=== PATIENT | male | born 1950 | race Caucasian/White ===

== ENCOUNTER 2016-11-08 06:03 | Observation (INO) | payer BC ==
[~2016-11-08] VITALS: Ht 180.3 cm; Wt 110.2 kg
--- NOTE | ~2016-11-08 | TEE ---
Transesophageal Echocardiogram [facility] [id number] [place]. [address] NAME: KENNEY SCHNEIDER : 46 STATUS : ADM Sonia PAT#: [id number] AGE: 66 ADM/REG DATE : 11/08/16 MR#: [id number] REPORT SERV DATE: 11/09/16 DICTATED BY: SANTOS WILL DATE: 11/08/16 REPORT STATUS : Draft TRANSCRIBED BY: MODL DATE: 11/08/16 TRANSESOPHAGEAL ECHOCARDIOGRAM INDICATION: A 66-year-old man with mitral regurgitation. PROCEDURE: After questions were answered and consents were signed, the patient was sedated with propofol per Anesthesia. The probe was placed to mid esophagus and images were obtained without difficulty. At the conclusion of the procedure, the probe was withdrawn. The patient is recovering in the short-stay unit. 2-D INTERPRETATION: The left ventricular function is mildly decreased globally. There was no dilatation noted. RV was grossly normal in size and function. The mitral valve opened adequately. No prolapse was noted. There was no tethering of the mitral valve leaflets. The left atrium was enlarged. No thrombus was noted in the left atrium nor the left atrial appendage. The interatrial septum was intact. The right atrium was enlarged. The tricuspid valve opened adequately. The aortic valve was trileaflet and opened adequately. The pulmonic valve was not well visualized. There was no pericardial effusion. Mild atherosclerotic plaquing was noted in the descending aorta. COLOR FLOW: Moderate central mitral regurgitation was noted with moderate tricuspid regurgitation and trace aortic insufficiency. No color flow was noted across the interatrial septum. DOPPLER: The left upper and right upper pulmonary veins were both interrogated with pulse- wave Doppler. There was mild blunting but certainly, no reversal of the systolic inflow wave. CONCLUSION: 1. MILDLY DECREASED LEFT VENTRICULAR SYSTOLIC FUNCTION WITH ESTIMATED LVEF OF 45-50%. 2. 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 WO/MODL Santos Will M.D., Ph.D, F.A.C.C. / [id number] CC: Ervin Hallman M.D.
[~2016-11-08 06:03] MED LIST: ASAB PO; CARDCD240 PO; CO Q-10100 MG PO; FISH OIL1200 MG PO; FLOMAX4 PO; IMDUR30 PO; JANTOVEN6 MG; PRAVACHOL40 MG PO; ZYRTEC ALLGY10 MG PO
[2016-11-08 06:50] LABS: BASOPHILS 0.5 %; BASOPHILS ABSOLUTE 0.04 10/3/uL (0.0-0.16); EOSINOPHILS 3.2 %; EOSINOPHILS ABSOLUTE 0.28 10/3/uL (0.0-0.53); HEMATOCRIT 46.8 % (40.0-51.0); HEMOGLOBIN 16.2 g/dL (13.6-17.8); IMMATURE GRANULOCYTES 0.8 %; IMMATURE GRANULOCYTES ABSOLUTE 0.07 10/3/uL (0.0-0.11); LYMPHOCYTES 22.4 %; LYMPHOCYTES ABSOLUTE 1.94 10/3/uL (0.67-4.30); MEAN CORPUS HGB CONC 34.6 g/dL (32.0-36.0); MEAN CORPUSCULAR VOLUME 92.3 fL (80-100); MONOCYTES 14.6 %; MONOCYTES ABSOLUTE 1.26 10/3/uL (0.21-1.20); NEUTROPHILS 58.5 %; NEUTROPHILS ABSOLUTE 5.06 10/3/uL (2.02-8.40); PLATELET COUNT 201 10/3/uL (150-400); RED CELL COUNT 5.07 10/6/uL (4.7-6.1); WHITE BLOOD CELLS 8.7 10/3/uL (4.5-10.5)
[2016-11-08 06:51] LABS: MANUAL DIFF NO %
[2016-11-08 07:03] LABS: BUN (BLOOD UREA NITROGEN) 21 MG/DL (6-23); CALCIUM, SERUM 8.9 MG/DL (8.5-10.4); CHLORIDE, SERUM 107 MMOL/L (96-112); CHOL/HDL RATIO(NOT ORDER) 4.1 (0-5); CHOLESTEROL 181 MG/DL (< 200); CO2 (CARBON DIOXIDE) 26 MMOL/L (24-34); CREATININE 1.31 MG/DL (0.70-1.30); GFR AFRICAN AMERICAN 64 ML/MIN (>=60); GFR NON AFRICAN AMERICAN 56 ML/MIN (>=60); HDL CHOLESTEROL 44 MG/DL (> 39); LDL CHOLESTEROL 113 MG/DL (< 130); NON-HDL CHOLESTEROL 137 MG/DL (< 160); SODIUM, SERUM 140 MMOL/L (135-148); TRIGLYCERIDE 120 MG/DL (< 150)
[2016-11-08 07:04] LABS: GLUCOSE, SERUM 115 MG/DL (60-99)
[2016-11-08 08:44] LABS: INTERNATIONAL NORMAL RATI 1.2 UNITS (-); PROTIME (NOT ORD) 14.9 SEC (12.0-14.5)
[2016-11-09 05:41] LABS: BASOPHILS 0.3 %; BASOPHILS ABSOLUTE 0.03 10/3/uL (0.0-0.16); EOSINOPHILS 3.2 %; EOSINOPHILS ABSOLUTE 0.28 10/3/uL (0.0-0.53); HEMATOCRIT 46.2 % (40.0-51.0); IMMATURE GRANULOCYTES 0.6 %; IMMATURE GRANULOCYTES ABSOLUTE 0.05 10/3/uL (0.0-0.11); LYMPHOCYTES 17.5 %; LYMPHOCYTES ABSOLUTE 1.54 10/3/uL (0.67-4.30); MEAN CORPUS HGB CONC 34.6 g/dL (32.0-36.0); MEAN CORPUSCULAR HEMOGLOB 31.6 pg (26.0-34.0); MEAN CORPUSCULAR VOLUME 91.1 fL (80-100); MEAN PLATELET VOLUME 11.3 fL (9.2-13.0); MONOCYTES 12.5 %; NEUTROPHILS 65.9 %; NEUTROPHILS ABSOLUTE 5.79 10/3/uL (2.02-8.40); PLATELET COUNT 187 10/3/uL (150-400); RBC DISTRIBUTION WIDTH 13.3 % (12.0-16.0); RED CELL COUNT 5.07 10/6/uL (4.7-6.1); WHITE BLOOD CELLS 8.8 10/3/uL (4.5-10.5)
[2016-11-09 05:47] LABS: INTERNATIONAL NORMAL RATI 1.2 UNITS (-); PROTIME (NOT ORD) 14.7 SEC (12.0-14.5)
[2016-11-09 05:48] LABS: MANUAL DIFF NO %
[2016-11-09 05:57] LABS: BUN (BLOOD UREA NITROGEN) 18 MG/DL (6-23); CALCIUM, SERUM 8.7 MG/DL (8.5-10.4); CHLORIDE, SERUM 108 MMOL/L (96-112); CO2 (CARBON DIOXIDE) 23 MMOL/L (24-34); CREATININE 1.23 MG/DL (0.70-1.30); GFR AFRICAN AMERICAN 69 ML/MIN (>=60); GFR NON AFRICAN AMERICAN 60 ML/MIN (>=60); GLUCOSE, SERUM 103 MG/DL (60-99); POTASSIUM, SERUM 4.1 MMOL/L (3.5-5.3); SODIUM, SERUM 142 MMOL/L (135-148)
[2016-11-09] MEDS ORDERED: LIPITOR40 PO (17:01)
== END 2016-11-09 19:20 | disposition home or self-care (01) ==
LOC: CORLMH 06:03 → SSU2 06:03 → CORLMH 06:13 → SSU2 06:14 → CORLMH 08:15 → SSU2 11-09 19:20
PROVIDERS: Internal Medicine Interventional Cardiology
DX: I25.118 Atherosclerotic heart disease of native coronary artery with other forms of angina pectoris (principal); I48.2 Chronic atrial fibrillation; I42.9 Cardiomyopathy, unspecified; E78.5 Hyperlipidemia, unspecified; G47.33 Obstructive sleep apnea (adult) (pediatric); Z87.891 Personal history of nicotine dependence; Z79.82 Long term (current) use of aspirin; Z79.899 Other long term (current) drug therapy; Z79.01 Long term (current) use of anticoagulants
CPT/HCPCS: 80048; 80061; 82803; 85025; 85347; 85610; 93005; 93312; 93320; 93325; 93454; 93460; 93571; 93572; 96374; 99152; 99153; A9270-GY; C1760; C1769; C1887; C1894; G0378; J2250; J3010; Q9967